=== PATIENT | female | born 1965 | race Caucasian/White ===

== ENCOUNTER → 2023-11-24 14:26 | Outpatient (REF) | payer BC, SELFPAY | LOC: HWRAD 14:26 | PROVIDERS: ATTENDING PHYSICIAN Internal Medicine; FAMILY PHYSICIAN Internal Medicine | DX: M81.0 Age-related osteoporosis without current pathological fracture (principal) | CPT/HCPCS: 77080 ==

== ENCOUNTER → 2024-06-27 06:26 | Day surgery (SDC) | payer BC, SELFPAY | LOC: GI 06:26 | PROVIDERS: ATTENDING PHYSICIAN Internal Medicine | DX: Z12.11 Encounter for screening for malignant neoplasm of colon (principal); Z86.010 Personal history of colon polyps; K57.30 Diverticulosis of large intestine without perforation or abscess without bleeding; D12.2 Benign neoplasm of ascending colon; K63.5 Polyp of colon | CPT/HCPCS: 45385; 88305 ==

== ENCOUNTER → 2024-07-18 07:03 | Outpatient (REF) | payer BC, SELFPAY | LOC: WDC 07:03 | PROVIDERS: ATTENDING PHYSICIAN Student in an Organized Health Care Education/Training Program | DX: Z12.31 Encounter for screening mammogram for malignant neoplasm of breast (principal) | CPT/HCPCS: 77063; 77067 ==

== ENCOUNTER → 2024-07-23 08:15 | Outpatient (REF) | payer BC, SELFPAY | LOC: RCS 08:15 | PROVIDERS: ATTENDING PHYSICIAN Student in an Organized Health Care Education/Training Program | DX: R01.1 Cardiac murmur, unspecified (principal) | CPT/HCPCS: 93306 ==

== ENCOUNTER 2024-07-25 06:09 | Day surgery (SDC) | payer BC, SELFPAY ==
[2024-07-23 09:37] VITALS: BMI 25.1
[2024-07-23 11:07] LABS: % Basophils 0.6 % (0-2); % Eosinophils 2.5 % (0-6); % Immature Granulocytes 0.2 % (0-0.5); % Lymphocytes 18.6 % (20.5-51.1); % Monocytes 10.2 % (1.7-9.3); % Neutrophils 67.9 % (42.2-75.2); Absolute Eosinophils 0.1 10^3/uL (0-0.7); Absolute Monocytes 0.5 10^3/uL (0.1-0.6); Absolute Neutrophils 3.5 10^3/uL (1.4-6.5); Hematocrit 37.7 % (37.0-47.0); Hemoglobin 12.1 g/dL (12.0-16.0); Mean Corp Hgb Conc. 32.1 g/dL (33.0-37.0); Mean Corpuscular Volume 93.5 fL (81.0-99.0); Mean Platelet Volume 11.5 fL (7.4-10.4); Nucleated Red Blood Cells % 0 %; Platelet Count 170 10^3/uL (130-400); Red Blood Cell Count 4.03 10^6/uL (4.20-5.40); Red Cell Dist. Width 12.7 % (11.5-14.5); White Blood Cell Count 5.2 10^3/uL (4.8-10.8)
[2024-07-23 11:34] LABS: Blood Urea Nitrogen 16 mg/dl (7-17); Calcium 9.1 mg/dl (8.4-10.2); Carbon Dioxide 29 mmol/L (22-30); Chloride 103 mmol/L (98-107); Estimated Creatinine Clearance 81 ml/min; Glucose 71 mg/dl (70-99); Potassium 4.5 mmol/L (3.5-5.1); Sodium 144 mmol/L (135-145); eGFR > 60.00
[2024-07-25] VITALS (9 sets, daily range): BP systolic 111–137; BP diastolic 60–70; BMI 25.1
[2024-07-25] MEDS: TYLENOL 1000 MG PO (07:13)
[2024-07-25] MEDS: MOBIC 15 MG PO (07:13)
[2024-07-25] MEDS: NORMOSOL-R/PLASMALYTE-A 1000 IV (07:14)
[2024-07-25] MEDS: SUBLIMAZE 50 MCG IV (09:22)
[2024-07-25] MEDS: SUBLIMAZE 25 MCG IV ×2 (09:37→09:49)
[2024-07-25] MEDS: ZOFRAN 4 MG IV (10:38)
[2024-07-25] MEDS: ROXICODONE 5 MG PO (10:52)
== END 2024-07-25 11:50 | disposition home or self-care (01) ==
LOC: SDS 06:09
PROVIDERS: ATTENDING PHYSICIAN Orthopaedic Surgery; FAMILY PHYSICIAN Student in an Organized Health Care Education/Training Program
DX: S83.281A Other tear of lateral meniscus, current injury, right knee, initial encounter (principal); S83.241A Other tear of medial meniscus, current injury, right knee, initial encounter; X58.XXXA Exposure to other specified factors, initial encounter; Z18.89 Other specified retained foreign body fragments; Z87.81 Personal history of (healed) traumatic fracture
CPT/HCPCS: 29880; 73560; 76000; 80048; 85025; 93005

== ENCOUNTER 2025-01-24 06:01 | Outpatient (RCR) | payer BC, SELFPAY | END 2025-01-24 23:59 | disposition home or self-care (01) | LOC: RPT 06:01 | PROVIDERS: ATTENDING PHYSICIAN Internal Medicine; FAMILY PHYSICIAN Student in an Organized Health Care Education/Training Program | DX: K62.89 Other specified diseases of anus and rectum (principal); R10.2 Pelvic and perineal pain; Z73.6 Limitation of activities due to disability | CPT/HCPCS: 97163; 97530 ==

== ENCOUNTER 2025-03-14 08:13 | Outpatient (RCR) | payer BC, SELFPAY | END 2025-03-14 23:59 | disposition home or self-care (01) | LOC: RPT 08:13 | PROVIDERS: ATTENDING PHYSICIAN Internal Medicine; FAMILY PHYSICIAN Student in an Organized Health Care Education/Training Program | DX: K62.89 Other specified diseases of anus and rectum (principal); M62.89 Other specified disorders of muscle; R10.2 Pelvic and perineal pain; Z73.6 Limitation of activities due to disability | CPT/HCPCS: 97014; 97110; 97140; 97530 ==

== ENCOUNTER 2025-03-21 08:05 | Outpatient (RCR) | payer BC, SELFPAY | END 2025-03-21 23:59 | disposition home or self-care (01) | LOC: RPT 08:05 | PROVIDERS: ATTENDING PHYSICIAN Internal Medicine; FAMILY PHYSICIAN Student in an Organized Health Care Education/Training Program | DX: K62.89 Other specified diseases of anus and rectum (principal); M62.89 Other specified disorders of muscle; R10.2 Pelvic and perineal pain; Z73.6 Limitation of activities due to disability | CPT/HCPCS: 97014; 97110; 97112; 97140 ==

== ENCOUNTER → 2025-07-22 07:18 | Outpatient (REF) | payer BC, SELFPAY | LOC: WDC 07:18 | PROVIDERS: ATTENDING PHYSICIAN Student in an Organized Health Care Education/Training Program | DX: Z12.31 Encounter for screening mammogram for malignant neoplasm of breast (principal) | CPT/HCPCS: 77063; 77067 ==

== ENCOUNTER → 2025-08-06 09:05 | Outpatient (REF) | payer BC, SELFPAY | LOC: WDC 09:05 | PROVIDERS: ATTENDING PHYSICIAN Student in an Organized Health Care Education/Training Program | DX: N64.4 Mastodynia (principal) | CPT/HCPCS: 76642 ==